=== PATIENT | female | born 1965 | race Caucasian/White ===

== ENCOUNTER → 2017-06-07 | Day surgery (SDC) | payer OTHER ==
--- NOTE | 2017-06-07 16:12 | MM ---
EXAMINATION TYPE: MG discontinued stereo core LT DATE OF EXAM: 06/07/2017 COMPARISON: Outside exams 05/09/2017 and 04/26/2016 CLINICAL HISTORY: 51-year-old female abnormal mammogram. Patient with family history of BRCA1 mutatio n. Scheduled for testing on July 09. TECHNIQUE and FINDINGS: The patient's imaging is reviewed. The initial screening exam from 04/29/2017 indicated an asymmetry in the anterior aspect medially. The diagnostic mammogram images from 05/09/2017 are reviewed and show n o clear persisting abnormality here. A central asymmetry was questioned at that time but only compare d back to the 2015 exam whereas the initial screening was compared to older priors. No discrete targe t is seen for core needle biopsy at this time. Six-month follow-up diagnostic left breast mammogram is recommended. Findings were discussed with the patient after consulting with Dr. Isaias Islas. IMPRESSION: 1. BI-RADS 3 - probably benign 2. Canceled stereotactic core needle biopsy left breast as no discrete target for biopsy is seen at t his time. RECOMMENDATION: 1. Six-month follow-up diagnostic left breast mammogram. 2. Patient should continue as planned with BRCA1 gene mutation testing for herself given her positive family history. 3. Patient should continue monthly self breast exam. 4. This should not preclude additional follow-up of suspicious palpable abnormalities.
== END ==
LOC: RADMAMWWP 07:24
PROVIDERS: ATTEND Surgery
DX: R92.8 Other abnormal and inconclusive findings on diagnostic imaging of breast (principal); Z53.8 Procedure and treatment not carried out for other reasons; Z80.3 Family history of malignant neoplasm of breast

== ENCOUNTER → 2017-12-12 | Outpatient (CLI) | payer OTHER ==
--- NOTE | 2017-12-13 08:28 | MM ---
Reason for exam: clinical finding. Last mammogram was performed 7 months ago. History: Family history of breast cancer in mother at age 34, breast cancer in aunt at age 40, and breast cancer in 2 cousins at age 30. MG discontinued stereo core LT of the left breast, June 07, 2017. Benign excisional biopsy of the left breast, 1997. Physical Findings: Nurse did not find any significant physical abnormalities on exam. MG 3D Diag Mammo W/Cad KEVIN Bilateral CC and MLO view(s) were taken. Prior study comparison: April 29, 2017, mammogram. April 26, 2016, mammogram. There are scattered fibroglandular densities. Stable asymmetric densities on the left breast. Nurse reports that patient did undergo BRCA gene mutation testing and was negative. No significant new findings when compared with previous films. These results were verbally communicated with the patient and result sheet given to the patient on 12/12/17. ASSESSMENT: Negative, BI-RAD 1 RECOMMENDATION: Routine screening mammogram of both breasts in 1 year.
== END | disposition home or self-care (01) ==
LOC: RADMAMWWP 08:58
PROVIDERS: ATTEND Family Medicine
DX: R92.8 Other abnormal and inconclusive findings on diagnostic imaging of breast (principal)
CPT/HCPCS: 77066; G0279

== ENCOUNTER → 2018-12-30 | Outpatient (CLI) | payer OTHER ==
--- NOTE | 2018-12-31 11:02 | MM ---
Reason for exam: screening (asymptomatic). Last mammogram was performed 1 year and 1 month ago. History: Family history of breast cancer in mother at age 34, breast cancer in aunt at age 40, and breast cancer in 2 cousins at age 30. MG discontinued stereo core LT of the left breast, June 07, 2017. Benign excisional biopsy of the left breast, 1997. Physical Findings: A clinical breast exam by your physician is recommended on an annual basis and results should be correlated with mammographic findings. MG Screening Mammo w CAD Bilateral CC and MLO view(s) were taken. Prior study comparison: December 12, 2017, bilateral MG 3d diag mammo w/cad KEVIN. April 29, 2017, mammogram. There are scattered fibroglandular densities. There is no discrete abnormality. No significant changes when compared with prior studies. ASSESSMENT: Negative, BI-RAD 1 RECOMMENDATION: Routine screening mammogram of both breasts in 1 year.
== END | disposition home or self-care (01) ==
LOC: RADMAMWWP 07:19
PROVIDERS: ATTEND Family Medicine
DX: Z12.31 Encounter for screening mammogram for malignant neoplasm of breast (principal)
CPT/HCPCS: 77067

== ENCOUNTER → 2020-01-19 | Outpatient (CLI) | payer BC, OTHER ==
--- NOTE | 2020-01-20 08:24 | MM ---
Reason for exam: screening (asymptomatic). Last mammogram was performed 1 year and 1 month ago. History: Family history of breast cancer in mother at age 34, breast cancer in aunt at age 40, and breast cancer in 2 cousins at age 30. MG discontinued stereo core LT of the left breast, June 07, 2017. Benign excisional biopsy of the left breast, 1997. Took hormonal contraceptives for 3 months. Physical Findings: A clinical breast exam by your physician is recommended on an annual basis and results should be correlated with mammographic findings. MG 3D Screening Mammo W/Cad Bilateral CC and MLO view(s) were taken. Prior study comparison: December 30, 2018, bilateral MG screening mammo w CAD. December 12, 2017, bilateral MG 3d diag mammo w/cad KEVIN. There are scattered fibroglandular densities. There is no discrete abnormality. No significant changes when compared with prior studies. ASSESSMENT: Negative, BI-RAD 1 RECOMMENDATION: Routine screening mammogram of both breasts in 1 year.
== END | disposition home or self-care (01) ==
LOC: RADMAMWWP 08:01
PROVIDERS: ATTEND Family Medicine
DX: Z12.31 Encounter for screening mammogram for malignant neoplasm of breast (principal)
CPT/HCPCS: 77063; 77067

== ENCOUNTER → 2021-03-08 | Outpatient (CLI) | payer BC, OTHER ==
--- NOTE | 2021-03-09 11:21 | MM ---
Reason for exam: screening (asymptomatic). Last mammogram was performed 1 year and 2 months ago. History: Family history of breast cancer in mother at age 34, breast cancer in aunt at age 40, and breast cancer in 2 cousins at age 30. MG discontinued stereo core LT of the left breast, June 07, 2017. Benign excisional biopsy of the left breast, 1997. Took hormonal contraceptives for 3 months. Physical Findings: A clinical breast exam by your physician is recommended on an annual basis and results should be correlated with mammographic findings. MG 3D Screening Mammo W/Cad Bilateral CC and MLO view(s) were taken. Prior study comparison: January 19, 2020, bilateral MG 3d screening mammo w/cad. December 30, 2018, bilateral MG screening mammo w CAD. There are scattered fibroglandular densities. There are benign appearing round calcifications bilaterally. There is chronic nodularity in the left breast. There is no discrete abnormality. ASSESSMENT: Benign, BI-RAD 2 RECOMMENDATION: Routine screening mammogram of both breasts in 1 year.
== END | disposition home or self-care (01) ==
LOC: RADMAMWWP 11:22
PROVIDERS: ATTEND Family Medicine
DX: Z12.31 Encounter for screening mammogram for malignant neoplasm of breast (principal); Z80.3 Family history of malignant neoplasm of breast
CPT/HCPCS: 77063; 77067

== ENCOUNTER → 2022-01-17 | Outpatient (CLI) | payer BC, OTHER ==
--- NOTE | 2022-01-17 14:14 | US ---
EXAMINATION TYPE: US venous doppler duplex LE LT DATE OF EXAM: 01/17/2022 12:38 PM COMPARISON: NONE CLINICAL HISTORY: I82.403 ACUTE EMBOLISM AND THOMBOS UNSP DEEP VEINS. pain in left calf ongoing since last summer, no h/o dvt, recent DVT SIDE PERFORMED: Left TECHNIQUE: The lower extremity deep venous system is examined utilizing real time linear array sonog hany with graded compression, doppler sonography and color-flow sonography. VESSELS IMAGED: Common Femoral Vein Deep Femoral Vein Greater Saphenous Vein * Femoral Vein Popliteal Vein Small Saphenous Vein * Proximal Calf Veins (* superficial vessels) Left Leg: Negative for DVT hypoechoic areas noted within calf muscle at site of patients pain that could be related to muscle strain or tear. MRI could benefit patient. She recalls an injury related to physical therapy last summer and pain has persisted on left calf. attempted to call office at 12:40 and they are closed IMPRESSION: 1. Left lower extremity ultrasound negative for deep venous thrombosis. 2. Hypoechoic collection within the popliteal space. Correlate for seroma. Popliteal cyst is consider ed less likely. MRI could further evaluate this finding.
== END | disposition home or self-care (01) ==
LOC: RADUSWWP 12:05
PROVIDERS: ATTEND Family Medicine
DX: I82.403 Acute embolism and thrombosis of unspecified deep veins of lower extremity, bilateral (principal)

== ENCOUNTER → 2022-03-22 | Outpatient (CLI) | payer BC, OTHER ==
[2022-03-22 14:30] LABS: Basophils # (A) 0.06 X 10*3/uL (0.00-0.10); Basophils % (A) 0.7 %; Eosinophils # (A) 0.13 X 10*3/uL (0.04-0.35); Eosinophils % (A) 1.5 %; HCT 50.2 % (37.2-46.3); HGB 16.2 g/dL (12.0-15.0); Immature Grans, Automated 0.5 %; Lymphocytes # (A) 2.96 X 10*3/uL (0.90-5.00); Lymphocytes % (A) 34.7 %; MCH 27.9 pg (27.0-32.0); MCHC 32.3 g/dL (32.0-37.0); MCV 86.4 fL (80.0-97.0); Mean Platelet Volume 9.6 fL (9.5-12.2); Monocytes # (A) 0.47 X 10*3/uL (0.20-1.00); Monocytes % (A) 5.5 %; NRBC Per 100 WBC 0 /100 WBCS (0.0-0.0); Neutrophils # (A) 4.86 X 10*3/uL (1.80-7.70); Neutrophils % (A) 57.1 %; Platelet Count 332 X 10*3/uL (140-440); RBC 5.81 X 10*6/uL (4.10-5.20); RDW 13.2 % (11.5-14.5); WBC 8.52 X 10*3/uL (4.50-10.00)
[2022-03-22 15:17] LABS: Anion Gap 11.3 mmol/L (10.00-18.00); Carbon Dioxide 26.7 mmol/L (20.0-27.5); Potassium 5.5 mmol/L (3.5-5.5)
== END | disposition home or self-care (01) ==
LOC: LABPAT 09:33
PROVIDERS: ATTEND Orthopaedic Surgery
DX: Z01.818 Encounter for other preprocedural examination (principal); M23.91 Unspecified internal derangement of right knee; R94.31 Abnormal electrocardiogram [ECG] [EKG]
CPT/HCPCS: 36415; 80051; 85025; 93005

== ENCOUNTER → 2022-03-28 | Outpatient (CLI) | payer BC, OTHER ==
--- NOTE | 2022-03-29 02:20 | MR ---
EXAMINATION TYPE: MR knee LT wo con DATE OF EXAM: 03/28/2022 COMPARISON: None HISTORY: Left inner knee pain, locking, and swelling since May 2021. Multiplanar multiecho imaging of the left knee without contrast. There is moderate size knee joint effusion. There is 4.5 x 1.5 cm popliteal cyst. Patella is intact. Distal femur and proximal tibia. Tach. There is minor spurring of the femoral and tibial condyles. Th e collateral ligaments appear fairly normal. There is a large horizontal tear through the posterior horn of the medial meniscus extending to the i nferior surface. The lateral meniscus appears intact. IMPRESSION: Moderate knee joint effusion with popliteal cyst. Moderate sized horizontal tear of the posterior horn of the medial meniscus. No evidence of any signi ficant ligamentous tear.
== END | disposition home or self-care (01) ==
LOC: RADMRIMAIN 19:01
PROVIDERS: ATTEND Orthopaedic Surgery
DX: M25.462 Effusion, left knee (principal); M71.22 Synovial cyst of popliteal space [Baker], left knee; M23.322 Other meniscus derangements, posterior horn of medial meniscus, left knee

== ENCOUNTER → 2022-04-03 | Outpatient (CLI) | payer BC, OTHER ==
--- NOTE | 2022-04-05 08:56 | MM ---
Reason for exam: screening (asymptomatic). Last mammogram was performed 1 year and 1 month ago. History: Patient is postmenopausal. Family history of breast cancer in mother at age 34, breast cancer in maternal aunt at age 40, and breast cancer in 2 cousins at age 30. MG discontinued stereo core LT of the left breast, June 07, 2017. Benign excisional biopsy of the left breast, 1997. Took hormonal contraceptives for 3 months. Physical Findings: A clinical breast exam by your physician is recommended on an annual basis and results should be correlated with mammographic findings. MG 3D Screening Mammo W/Cad Bilateral CC and MLO view(s) were taken. Prior study comparison: March 08, 2021, bilateral MG 3d screening mammo w/cad. January 19, 2020, bilateral MG 3d screening mammo w/cad. There are scattered fibroglandular densities. Benign appearing bilateral calcifications. No significant changes when compared with prior studies. ASSESSMENT: Benign, BI-RAD 2 RECOMMENDATION: Routine screening mammogram of both breasts in 1 year.
== END | disposition home or self-care (01) ==
LOC: RADMAMWWP 09:13
PROVIDERS: ATTEND Family Medicine
DX: Z12.31 Encounter for screening mammogram for malignant neoplasm of breast (principal); Z78.0 Asymptomatic menopausal state; Z80.3 Family history of malignant neoplasm of breast
CPT/HCPCS: 77063; 77067

== ENCOUNTER 2022-04-05 09:54 | Day surgery (SDC) | payer BC, OTHER ==
[2022-04-04 12:26] VITALS: BMI 49.8
--- NOTE | 2022-04-04 18:04 | HP ---
HISTORY AND PHYSICAL DATE OF SURGERY: 04/05/2022 Arianna Mcclelland is a 56-year-old patient seen with progressive right knee pain. We discussed options for treatment. She elected to proceed with right knee arthroscopy. Consent was obtained. PAST MEDICAL HISTORY: Pdb-fzwsvhf-kezwtrhmj diabetes, hyperlipidemia, gastroesophageal reflux disease. PAST SURGICAL HISTORY: Hysterectomy, section, knee arthroscopy, breast biopsy. DAILY MEDICATIONS: Atorvastatin, metformin, omeprazole, Singulair, Motrin. ALLERGIES: NONE. SOCIAL HISTORY: She smokes cigarettes. PHYSICAL EVALUATION OF THE RIGHT KNEE: Her range of motion is negative 3 to 120. Mild effusion. Tenderness, medial joint line. Positive medial Lyn's. Ligaments stable. Hip rotation without pain. Distal neurovascular exam intact. Radiographs of the right knee revealed mild osteoarthritis. MRI of the right knee revealed a complex medial meniscal tear and an intra-articular effusion. IMPRESSION: 1. Internal derangement of right knee with medial meniscal tear. 2. Hypertension. 3. Hyperlipidemia. 4. Jbf-mcqhsaj-plykgxqoy diabetes. PLAN: Right knee arthroscopy with partial medial meniscectomy and debridement. MMODL / IJN: [id number] /
[~2022-04-05 09:54] MED LIST: DEXAMETHASONE SOD PHOSPHATE 4 MG/ML 1 ML VIAL IV ONE; LACTATED RINGERS 1,000 ML IV SCH; ONDANSETRON 4 MG/2 ML VIAL IVP ONE
[2022-04-05 11:02] VITALS: TEMP 97.9
[2022-04-05] MEDS ORDERED: LIDOCAINE 1% (10MG/ML) FOR IV START INTRADERMA ONE (11:15)
[2022-04-05 11:30] LABS: Glucose,Whole Blood 124 mg/dL (75-99)
[2022-04-05] MEDS ORDERED: BUPIVACAINE (PF) 0.25% 30 ML VIAL SQ ONE ×2 (12:03→12:53)
[2022-04-05] MEDS ORDERED: fentaNYL (PF) 50 MCG/ML 2 ML AMP ONE (12:21)
[2022-04-05] MEDS ORDERED: LIDOCAINE 2% INJ 20 MG/ML (2 ML VIAL) ONE (12:21)
[2022-04-05] MEDS ORDERED: MIDAZOLAM 2 MG/2 ML VIAL ONE (12:21)
[2022-04-05] MEDS ORDERED: PROPOFOL 10 MG/ML 20 ML VIAL IV ONE (12:21)
--- NOTE | 2022-04-05 13:06 | P.OP ---
Date of Procedure: 04/05/22 Preoperative Diagnosis: Internal derangement right knee Postoperative Diagnosis: 1. Tear medial and lateral meniscus right knee 2. Grade 4 chondromalacia medial femoral condyle right knee 3. Grade 3 chondromalacia patella right knee 4. Reactive synovitis medial, lateral and suprapatellar compartments right knee Procedure(s) Performed: 1. Arthroscopic partial medial and lateral meniscectomy right knee 2. Arthroscopic microfracture medial femoral condyle right knee 3. Arthroscopic partial synovectomy medial, lateral and suprapatellar compartments right knee 4. Arthroscopic chondroplasty patella right knee Anesthesia: ISAUROA, local Surgeon: Aguila Campbell Estimated Blood Loss (ml): 8 Pathology: none sent Condition: stable Disposition: PACU Indications for Procedure: 56-year-old patient seen with progressive right knee pain. After treatment options were discussed, she elected to proceed with arthroscopy. Operative Findings: See description of procedure Description of Procedure: Patient was taken to the operative suite. Patient underwent a general anesthetic by the department of anesthesia. Patient was given preoperative antibiotics. The right lower extremity was placed in a well-padded arthroscopic leg tolliver. The right leg was prepped and draped in the normal sterile orthopedic fashion. A lateral parapatellar and suprapatellar incision was made. Trochars were inserted. Arthroscopy was initiated. Suprapatellar pouch revealed diffuse thick reactive synovitis. The patellofemoral joint appeared to articulate congruently. There was grade 3 chondromalacia patella with diffuse osteochondral flap tears present. The scope was guided into the medial gutter. Loose bodies or plica were identified. The scope was then guided into the medial compartment. A medial parapatellar incision was made. Trocar inserted followed by probe. There was a root type tear involving the posterior horn medial meniscus with instability. There was an area of grade 3/4 chondromalacia weightbearing surface medial femoral condyle. There was thick reactive synovitis anteriorly. I performed a partial medial meniscectomy getting down to stable meniscal tissue. I performed a chondroplasty of the medial femoral condyle. I performed a partial synovectomy decompressing the reactive synovitis anteriorly. I did note an area of exposed bone weightbearing surface medial femoral condyle measuring approximately 17 mm in diameter. I introduced a microfracture awl and I performed a microfracture of the medial femoral condyle penetrating the bone with resultant bleeding at the microfracture site. The res idual osteochondral surface was stable. The residual meniscus was stable. There was good decompression of synovitis. Scope and probe were then guided into the intercondylar notch. Cruciates were identified, probed and found to be stable. The scope and probe were then guided into lateral compartment. There was a radial tear involving the mid body of the lateral meniscus. There was thick reactive synovitis anteriorly. There were grade 1 chondromalacia changes of the tibial plateau. I performed a partial lateral meniscectomy getting down to stable meniscal tissue. I performed a partial synovectomy decompressing the reactive synovitis. The residual meniscus was stable. There was good decompression of the synovitis. The scope was in guided back into the suprapatellar compartment. I introduced a motorized shaver into the suprapatellar compartment. I debrided some piecemeal fragments of meniscus that I encountered. I performed a chondroplasty of the patella getting down to sta ble osteochondral tissue. I performed a partial synovectomy decompressing the thick reactive synovitis. The shaver was now removed. The residual osteochondral surface was stable. There was good decompression of synovitis. I now took one more look around the entire knee, no residual debris. Instruments were now removed from the joint. The joint was infiltrated with .25% Marcaine. Steri-Strips were applied to the portal sites. Sterile dressings were applied. The patient was placed into a CARLA hose. No tourniquet was utilized. The patient was awakened, transferred to a bed and taken to recovery stable satisfactory condition.
[2022-04-05] MEDS: HYDROmorphone 0.5 MG/0.5 ML SYRINGE IVP PRN ×3 (13:09→13:28)
[2022-04-05] MEDS ORDERED: KETOROLAC 15 MG/ML 1 ML VIAL IVP ONE (13:10)
[2022-04-05] MEDS ORDERED: LACTATED RINGERS 1,000 ML IV ONE (13:48)
[2022-04-05] MEDS ORDERED: HYDROcodone/APAP 5-325MG 1 EACH TAB PO ONE (13:54)
[2022-04-05] MEDS ORDERED: HYDROcodone/APAP 5-325MG 1 EACH TAB ONE (13:56)
[2022-04-05] MEDS ORDERED: ONDANSETRON ODT 4 MG TAB PO ONE (14:20)
[2022-04-05 14:37] VITALS: BP 162/77; PULSE 67; RESP 20
== END 2022-04-05 14:53 | disposition home or self-care (01) ==
LOC: OR 09:54
PROVIDERS: ATTEND Orthopaedic Surgery
DX: S83.281A Other tear of lateral meniscus, current injury, right knee, initial encounter (principal); M22.41 Chondromalacia patellae, right knee; M65.9 Synovitis and tenosynovitis, unspecified; E11.9 Type 2 diabetes mellitus without complications; E78.5 Hyperlipidemia, unspecified; F17.210 Nicotine dependence, cigarettes, uncomplicated; I10 Essential (primary) hypertension; K21.9 Gastro-esophageal reflux disease without esophagitis; Z79.84 Long term (current) use of oral hypoglycemic drugs; J45.909 Unspecified asthma, uncomplicated; F41.9 Anxiety disorder, unspecified; F32.A Depression, unspecified; Z88.8 Allergy status to other drugs, medicaments and biological substances; Z79.899 Other long term (current) drug therapy
CPT/HCPCS: 29879; 29880; J2250; J0690; J2405; J3010; J1885; J2704; J1170; J2001

== ENCOUNTER 2022-05-24 12:26 | Day surgery (SDC) | payer BC, OTHER ==
--- NOTE | 2022-05-23 17:43 | HP ---
HISTORY AND PHYSICAL REASON FOR ADMISSION: Surgery scheduled for 05/24/2022 HISTORY OF PRESENT ILLNESS: Arianna Mcclelland is a 56-year-old patient seen with progressive left knee pain. We discussed options for treatment. She elected to proceed with left knee arthroscopy. Consent obtained. PAST MEDICAL HISTORY: Hypertension, hyperlipidemia, gyn-aueganp-pfjpamula diabetes. PAST SURGICAL HISTORY: section, hysterectomy, knee arthroscopy, breast biopsy. DAILY MEDICATIONS: Atorvastatin, metformin, omeprazole, Valsartan, vitamins. ALLERGIES: None. SOCIAL HISTORY: She smokes cigarettes. PHYSICAL EVALUATION OF THE LEFT KNEE: Range of motion 0-125. Mild effusion. Tenderness medial joint line. Positive medial Lyn's. Ligaments stable. Hip rotation without pain. Distal neurovascular exam intact left knee. RADIOGRAPHS: Left knee radiographs reveal some osteoarthritic changes. Left knee MRI revealed medial meniscal tear. IMPRESSION: 1. Internal derangement of left knee with medial meniscal tear. 2. Hypertension. 3. Hyperlipidemia. 4. Ipe-rfvhsvj-xukkullzn diabetes. PLAN: Left knee arthroscopy with partial medial meniscectomy and debridement. Surgery scheduled 05/24/2022. MMODL / IJN: [id number] /
[~2022-05-24 12:26] MED LIST changes: +HYDROmorphone 0.5 MG/0.5 ML SYRINGE IVP PRN; +LIDOCAINE 1% (10MG/ML) FOR IV START INTRADERMA PRN; +MIDAZOLAM 2 MG/2 ML VIAL IV PRN
[2022-05-24 13:04] LABS: Glucose,Whole Blood 135 mg/dL (70-110)
[2022-05-24] MEDS ORDERED: MIDAZOLAM 2 MG/2 ML VIAL IVP ONE (13:16)
[2022-05-24] MEDS ORDERED: SUCCINYLCHOLINE CHLORIDE 100 MG/5 ML SYR IV ONE (13:56)
[2022-05-24] MEDS ORDERED: MIDAZOLAM 2 MG/2 ML VIAL ONE (13:56)
[2022-05-24] MEDS ORDERED: PROPOFOL 10 MG/ML 20 ML VIAL IV ONE (13:56)
[2022-05-24] MEDS ORDERED: fentaNYL (PF) 50 MCG/ML 2 ML AMP ONE (13:56)
[2022-05-24] MEDS ORDERED: BUPIVACAINE (PF) 0.25% 30 ML VIAL SQ ONE ×2 (14:06→14:29)
--- NOTE | 2022-05-24 14:48 | P.OP ---
Date of Procedure: 05/24/22 Preoperative Diagnosis: Internal derangement left knee Postoperative Diagnosis: 1. Tear medial and lateral meniscus left knee 2. Reactive synovitis medial, lateral and suprapatellar compartments left knee 3. Grade 2 chondromalacia patella left knee Procedure(s) Performed: 1. Arthroscopic partial medial and lateral meniscectomy left knee 2. Arthroscopic partial synovectomy medial, lateral and super patellar compartments left knee 3. Arthroscopic chondroplasty patella left knee Anesthesia: ISAUROA, local Surgeon: Aguila Campbell Estimated Blood Loss (ml): 8 Pathology: none sent Condition: stable Disposition: PACU Indications for Procedure: 56-year-old patient seen with progressive left knee pain. After treatment options were discussed with her, she elected to proceed with arthroscopy. Operative Findings: See description of procedure Description of Procedure: Patient was taken to the operative suite. Patient underwent a general anesthetic by the department of anesthesia. Patient was given preoperative anti biotics. The left lower extremity was placed in a well-padded arthroscopic leg tolliver. The left leg was prepped and draped in the normal sterile orthopedic fashion. A lateral parapatellar and suprapatellar incision was made. Trochars were inserted. Arthroscopy was initiated. Suprapatellar pouch revealed diffuse thick reactive synovitis. The patellofemoral joint appeared to articulate congruently. There was grade 2 chondromalacia patella with some diffuse osteochondral flap tears present. The scope was guided into the medial gutter. No loose bodies or plica were identified. The scope was then guided into the medial compartment. A medial parapatellar incision was made. Trocar inserted followed by probe. There was a complex tear involving the posterior horn medial meniscus. There were grade 1/2 chondromalacia changes of the medial tibial plateau. There was some thick reactive synovitis anteriorly. I performed a partial medial meniscectomy getting down to stable meniscal tissue. I performed a partial synovectomy decompressing the reactive synovitis. The residual meniscus was stable. There was good decompression of the synovitis. Scope and probe were then guided into the intercondylar notch. Cruciates were identified, probed and found to be stable. The scope and probe were then guided into lateral compartment. There was a radial tear involving the midbody lateral meniscus. There was some thick reactive synovitis anteriorly. There were grade 1 chondromalacia changes of the lateral tibial plateau. I performed a partial lateral meniscectomy getting down to stable meniscal tissue. I performed a partial synovectomy decompressing the reactive synovitis. The residual meniscus was stable. There was good decompression of the synovitis. Thee scope was in guided back into the suprapatellar compartment. I introduced the motorized shaver into the suprapatellar compartment. I debrided some piecemeal fragments of meniscus I encountered. I performed a chondroplasty of the patella getting down to stable osteochondral tissue. I performed a partial synovectomy. The shaver was now removed. There was good decompression of synovitis. The residual osteochondral surface about the patella was stable. I now took one more look on the entire knee, no residual debris. Instruments were now removed from the joint. The joint was infiltrated with .25% Marcaine. Steri-Strips were applied to the portal sites. Sterile dressings were applied. The patient was placed into a CARLA hose. No tourniquet was utilized. The patient was awakened, transferred to a bed and taken to recovery stable satisfactory condition.
[2022-05-24 14:50] VITALS: TEMP 97.2
[2022-05-24] MEDS: fentaNYL (PF) 50 MCG/ML 2 ML AMP IVP ONE ×2 (14:53→14:58)
[2022-05-24] MEDS ORDERED: LACTATED RINGERS 1,000 ML IV ONE ×2 (14:55)
[2022-05-24] MEDS ORDERED: HYDROcodone/APAP 5-325MG 1 EACH TAB PO ONE (15:20)
[2022-05-24] MEDS ORDERED: HYDROcodone/APAP 5-325MG 1 EACH TAB ONE (15:26)
[2022-05-24 15:39] VITALS: RESP 20
[2022-05-24 16:03] VITALS: BP 144/70; PULSE 69
== END 2022-05-24 16:04 | disposition home or self-care (01) ==
LOC: OR 12:26
PROVIDERS: ATTEND Orthopaedic Surgery
DX: M23.222 Derangement of posterior horn of medial meniscus due to old tear or injury, left knee (principal); M23.201 Derangement of unspecified lateral meniscus due to old tear or injury, left knee; M65.9 Synovitis and tenosynovitis, unspecified; M22.42 Chondromalacia patellae, left knee; M17.12 Unilateral primary osteoarthritis, left knee; I10 Essential (primary) hypertension; E11.69 Type 2 diabetes mellitus with other specified complication; E78.5 Hyperlipidemia, unspecified; Z79.84 Long term (current) use of oral hypoglycemic drugs; Z79.899 Other long term (current) drug therapy; F17.210 Nicotine dependence, cigarettes, uncomplicated; J45.909 Unspecified asthma, uncomplicated; K21.9 Gastro-esophageal reflux disease without esophagitis; Z88.5 Allergy status to narcotic agent; Z88.8 Allergy status to other drugs, medicaments and biological substances; Z88.6 Allergy status to analgesic agent; Z79.1 Long term (current) use of non-steroidal anti-inflammatories (NSAID); Z83.3 Family history of diabetes mellitus; Z82.49 Family history of ischemic heart disease and other diseases of the circulatory system; Z80.9 Family history of malignant neoplasm, unspecified; Z82.61 Family history of arthritis
CPT/HCPCS: 29880; 29876; J2250; J1100; J0690; J2405; J3010; J0330; J2704

== ENCOUNTER → 2023-04-09 | Outpatient (CLI) | payer BC, OTHER ==
--- NOTE | 2023-04-10 08:24 | MM ---
Reason for Exam: Screening (asymptomatic). Last screening mammogram was performed 12 month(s) ago. Patient History: Menarche at age 13. First Full-Term at age 17. Hysterectomy at age 47. Postmenopausal. Hormonal Contraceptives for 3 months. 1997, Benign Excisional Biopsy on the left side. 06/07/2017, MG discontinued stereo core LT on the left side. Maternal cousin had breast cancer, age 30. Maternal cousin had breast cancer, age 30. Maternal aunt had breast cancer, age 40. Mother had breast cancer, age 34. Risk Values: Rochelle 5 year model risk: 2.7%. NCI Lifetime model risk: 16.8%. Prior Study Comparison: 01/19/2020 Bilateral Screening Mammogram, [facility]. 03/08/2021 Bilateral Screening Mammogram, [facility]. 04/03/2022 Bilateral Screening Mammogram, [facility]. Tissue Density: There are scattered fibroglandular densities. Findings: Analyzed By CAD. There is no suspicious group of microcalcifications or new suspicious mass in either breast. Benign calcifications within both breasts. Chronic nodularity within the left breast. Similar post excisional biopsy changes in the left breast. Overall Assessment: Benign, BI-RAD 2 Management: Screening Mammogram of both breasts in 1 year. A clinical breast exam by your physician is recommended on an annual basis and results should be correlated with mammographic findings. Electronically signed and approved by: Agustín Mcginnis D.O.
== END | disposition home or self-care (01) ==
LOC: RADMAMWWP 07:08
PROVIDERS: ATTEND Family Medicine
DX: Z12.31 Encounter for screening mammogram for malignant neoplasm of breast (principal); Z78.0 Asymptomatic menopausal state; Z80.3 Family history of malignant neoplasm of breast
CPT/HCPCS: 77063; 77067

== ENCOUNTER → 2024-02-27 | Outpatient (CLI) | payer BC, OTHER ==
--- NOTE | 2024-02-27 15:21 | CT ---
EXAMINATION TYPE: CT abdomen pelvis wo con DATE OF EXAM: 02/27/2024 COMPARISON: None HISTORY: left umbilical pain CT DLP: 1128 mGycm Automated exposure control for dose reduction was used. TECHNIQUE: Helical acquisition of images was performed from the lung bases through the pelvis. FINDINGS: The lungs are clear. Gallbladder is normal and there is no gallstone, wall thickening, pericholecystic fluid or distention . There is no biliary ductal dilatation. There is no organomegaly of the liver, pancreas, spleen or adrenal glands. There are no renal calcifications or hydronephrosis. The caliber of the abdominal aorta is normal and there is no retroperitoneal adenopathy or hemorrhage . The bowel loops are normal in caliber is no evidence of obstruction. No inflammatory changes are iden tified in the mesentery and there is no free intraperitoneal air or fluid. The appendix is visualized and is normal. There is no pelvic mass, free fluid, abscess or adenopathy. The osseous structures and soft tissues are unremarkable. IMPRESSION: No significant abnormality seen.
== END | disposition home or self-care (01) ==
LOC: RADCTMAIN 12:07
PROVIDERS: ATTEND Family Medicine
DX: R10.32 Left lower quadrant pain (principal); R10.33 Periumbilical pain
CPT/HCPCS: 74176

== ENCOUNTER → 2024-06-12 | Outpatient (CLI) | payer BC, OTHER ==
--- NOTE | 2024-06-14 12:28 | MM ---
Reason for Exam: Screening (asymptomatic). Last mammogram was performed 1 year(s) and 2 month(s) ago. Patient History: Menarche at age 13. First Full-Term at age 17. Hysterectomy at age 47. Postmenopausal. Hormonal Contraceptives for 3 months. 1997, Benign Excisional Biopsy on the left side. 06/07/2017, MG discontinued stereo core LT on the left side. Maternal cousin had breast cancer, age 30. Maternal cousin had breast cancer, age 30. Maternal aunt had breast cancer, age 40. Mother had breast cancer, age 34. Risk Values: Rochelle 5 year model risk: 2.8%. NCI Lifetime model risk: 16.5%. Prior Study Comparison: 12/12/2017 Bilateral Diagnostic Mammogram, [facility]. 12/30/2018 Bilateral Screening Mammogram, [facility]. 01/19/2020 Bilateral Screening Mammogram, [facility]. 03/08/2021 Bilateral Screening Mammogram, [facility]. 04/03/2022 Bilateral Screening Mammogram, [facility]. 04/09/2023 Bilateral MG 3D screening mammo w/cad, [facility]. Tissue Density: There are scattered areas of fibroglandular density. Findings: Analyzed By CAD. The pattern is symmetrical. No significant interval change. Some distortion is within the mid left breast appears stable. No suspicious groups of microcalcifications, spiculated or lobular masses, architectural distortion or other secondary signs of malignancy are mammographically apparent. Overall Assessment: Benign, BI-RAD 2 Management: Screening Mammogram of both breasts in 1 year. A negative mammogram report should not preclude additional follow up of suspicious palpable abnormalities. Patient should continue monthly self breast exam. A clinical breast exam by your physician is recommended on an annual basis and results should be correlated with mammographic findings. Note on Rochelle scores and lifetime risk: 1. A Rochelle score greater than 3% is considered moderate risk. If this is the case, consider specialist referral to assess eligibility for a risk reducing agent. 2. If overall lifetime risk for the development of breast cancer is 20% or higher, the patient may qualify for future screening with alternating mammogram and breast MRI. Electronically signed and approved by: Jamil Valdez D.O. Radiologis
== END | disposition home or self-care (01) ==
LOC: RADMAMWWP 06:57
PROVIDERS: ATTEND Family Medicine
DX: Z12.31 Encounter for screening mammogram for malignant neoplasm of breast (principal); R92.323 Mammographic fibroglandular density, bilateral breasts; Z80.3 Family history of malignant neoplasm of breast; Z78.0 Asymptomatic menopausal state
CPT/HCPCS: 77063; 77067

== ENCOUNTER → 2025-05-31 | Outpatient (CLI) | payer BC, OTHER ==
[2025-05-31 15:20] LABS: Anion Gap 11.30 mmol/L (4.00-12.00); BUN/Creat Ratio 18.71 Ratio (12.00-20.00); Blood Urea Nitrogen 13.1 mg/dL (9.0-27.0); Calcium 9.9 mg/dL (8.7-10.3); Carbon Dioxide 23.7 mmol/L (21.6-31.8); Chloride 104 mmol/L (96-109); Glucose 100 mg/dL (70-110); Potassium 4.2 mmol/L (3.5-5.5); Sodium 139 mmol/L (135-145)
[2025-05-31 16:00] LABS: Basophils # (A) 0.06 X 10*3/uL (0.00-0.10); Basophils % (A) 0.8 %; Eosinophils # (A) 0.22 X 10*3/uL (0.04-0.35); Eosinophils % (A) 2.9 %; HCT 47.0 % (37.2-46.3); HGB 15.6 g/dL (12.0-15.0); Immature Grans, Automated 0.30 %; Lymphocytes # (A) 3.11 X 10*3/uL (0.90-5.00); Lymphocytes % (A) 41.7 %; MCH 28.1 pg (27.0-32.0); MCHC 33.2 g/dL (32.0-37.0); MCV 84.5 FL (80.0-97.0); Monocytes # (A) 0.59 X 10*3/uL (0.20-1.00); Monocytes % (A) 7.9 %; NRBC Per 100 WBC 0 X 10*3/uL (0.00-0.01); Neutrophils # (A) 3.46 X 10*3/uL (1.80-7.70); Neutrophils % (A) 46.4 %; Platelet Count 318 X 10*3/uL (140-440); RBC 5.56 X 10*6/uL (4.10-5.20); RDW 12.7 % (11.5-14.5); WBC 7.46 X 10*3/uL (4.50-10.00)
== END | disposition home or self-care (01) ==
LOC: LABPAT 12:11
PROVIDERS: ATTEND Orthopaedic Surgery
DX: Z01.818 Encounter for other preprocedural examination (principal); G56.02 Carpal tunnel syndrome, left upper limb
CPT/HCPCS: 80048; 85025; 93005

== ENCOUNTER 2025-06-15 07:53 | Day surgery (SDC) | payer BC, OTHER ==
--- NOTE | 2025-06-14 08:09 | P.HPOR ---
History of Present Illness H&P Date: 06/14/25 Chief Complaint: Left hand pain and numbness The patient is a 59-year-old female who presents with left hand pain and numbness has progressed over the past year. She has tried bracing along with medications without much relief. She notes pain with gripping and grasping and at night. Review of Systems Per HPI Past Medical History Past Medical History: Asthma, COPD, Diabetes Mellitus, GERD/Reflux, Hypert ension, Osteoarthritis (OA) Additional Past Medical History / Comment(s): Type 2. arthritis all over per pt. History of Any Multi-Drug Resistant Organisms: None Reported Past Surgical History: Section, Hysterectomy Additional Past Surgical History / Comment(s): right hand - osteo, left breast - needle biopsy with complications removal of " tissue" afterward. blood clot in breast? , naomie knee arthroscopic meniscus repair,. laser surgery rt eye 05/14/22 to open eye so she doesnt get glaucoma?( Dr Napier). cyst removal side of nose. Past Anesthesia/Blood Transfusion Reactions: No Reported Reaction Smoking Status: Current every day smoker - Past Family History Mother Family Medical History: Cancer, Diabetes Mellitus, Osteoarthritis (OA) Additional Family Medical History / Comment(s): stents in her heart Father History Unknown: Yes Medications and Allergies Home Medications Medication Instructions Recorded Confirmed Type ALPRAZolam [Xanax] 0.5 mg PO BID PRN 04/04/22 06/10/25 History Albuterol Inhaler [Ventolin Hfa 1 puff INHALATION RT-TID PRN 04/04/22 06/10/25 History Inhaler] Cyclobenzaprine [Flexeril] 10 mg PO TID PRN 04/04/22 06/10/25 History Montelukast Sodium [Singulair] 10 mg PO HS 04/04/22 06/10/25 History Valsartan 80 mg PO HS 04/04/22 06/10/25 History Atorvastatin Calcium [Lipitor] 40 mg PO HS 05/22/22 06/10/25 History Ergocalciferol [Vitamin D2 (1250 1,250 mcg PO WEEKLY 05/22/22 06/10/25 History Mcg = 01160 Iu)] Hydrocodone/Acetaminophen 1 tab PO Q6HR PRN 05/22/22 06/10/25 History [Hydrocodone/Acetaminophen 5-325] Naproxen Sodium [Aleve] 440 mg PO HS 05/22/22 06/10/25 History Omeprazole [PriLOSEC] 10 mg PO DAILY 05/22/22 06/10/25 History Tirzepatide [Mounjaro] 10 mg SQ TOURE 06/10/25 06/10/25 History Allergies Allergy/AdvReac Type Severity Reaction Status Date / Time ibuprofen [From Motrin] Allergy Intermediate SOB Verified 06/10/25 14:59 rosuvastatin calcium Allergy Rash/Hives Verified 06/10/25 14:59 [From Crestor] hydromorphone [From Dilaudid] AdvReac Intermediate Nausea & Verified 06/10/25 14:59 Vomiting Physical Examination - Wrist & Hand left Symptoms: tingling in thumb, index, long fingers Tests: carpal tunnel tests: positive, median nerve tests: positive Results The patient is a well-developed well-nourished female approximately 5 foot 8, 215 pounds of endomorphic habitus. HEENT exam is nonfocal, neck is supple. She is nontender about the left shoulder and elbow. On examination of her left wri st, she has mild thenar wasting. She has a positive Tinel's over the carpal canal. Abductor pollicis brevis strength 5/5. She has full digital range of motion. EMG report left upper extremity shows left median motor latency of the carpal canal 5.0, sensory latency non-recordable Assessment and Plan Assessment: Left carpal tunnel syndromesymptomatic Plan: I talked to the patient at length regarding her condition along with treatment options. At this point she remains quite symptomatic despite previous conservative measures. After a thorough discussion she opts to proceed with surgery. We will plan to proceed with a left carpal tunnel release utilizing local anesthetic and IV sedation. Risks and benefits were discussed at length in layman's terms.
[~2025-06-15 07:53] MED LIST changes: -DEXAMETHASONE SOD PHOSPHATE 4 MG/ML 1 ML VIAL IV ONE; -HYDROmorphone 0.5 MG/0.5 ML SYRINGE IVP PRN; -LACTATED RINGERS 1,000 ML IV SCH; -MIDAZOLAM 2 MG/2 ML VIAL IV PRN; -ONDANSETRON 4 MG/2 ML VIAL IVP ONE
[2025-06-15] MEDS: IV FLUID CONTINUATION 1,000 ML IV ONE (08:15)
[2025-06-15 08:17] VITALS: TEMP 97
[2025-06-15] MEDS: LACTATED RINGERS 1,000 ML IV SCH (08:24)
[2025-06-15] MEDS ORDERED: PROPOFOL 10 MG/ML 20 ML VIAL IV ONE (09:23)
[2025-06-15] MEDS ORDERED: MIDAZOLAM 2 MG/2 ML VIAL ONE (09:23)
[2025-06-15] MEDS ORDERED: LIDOCAINE 1% INJ 10MG/ML (20 ML MDV) ONE (09:23)
[2025-06-15] MEDS: BUPIVACAINE (PF) 0.25% 30 ML VIAL SQ ONE (09:38)
[2025-06-15] MEDS: LACTATED RINGERS 1,000 ML IV ONE (09:52)
--- NOTE | 2025-06-15 09:59 | P.OP ---
Date of Procedure: 06/15/25 Preoperative Diagnosis: Left carpal tunnel syndrome Postoperative Diagnosis: Same Procedure(s) Performed: Left carpal tunnel release Anesthesia: MAC, local Surgeon: Cem Vicente Estimated Blood Loss (ml): 1 Pathology: none sent Condition: stable Disposition: PACU Indications for Procedure: Patient is a 59-year-old female who presents with progressive left hand pain and numbness despite conservative measures. Clinically she was noted to have symptomatic carpal tunnel syndrome. A discussion of the risks and benefits of operative intervention versus continued conservative measures was made with the patient. She opted to proceed with surgery. Operative risks include infection, neurovascular injury, development of blood clots, possible incomplete resolution of symptoms, and possible need for subsequent procedures was discussed. Informed consent was obtained. Operative Findings: As below Description of Procedure: The patient was brought to the operating room, and after induction of IV sedation the left upper extremity was prepped and draped in normal fashion. The proposed incision site was outlined skin marker in line with the radial aspect the fourth ray extending from the volar wrist crease distally 2-1/2 cm. One quarter percent plain Marcaine was injected into the proposed incision site. 10 mL was utilized. The tourniquet was inflated to 250 mmHg. The skin incision was then made. The skin was incised sharply. Subcutaneous tissues were divided sharply the superficial palmar fascia was identified and split in line with the skin incision. The transverse carpal ligament was identified and transected under direct visualization distally to level the palmar fat pad. Proximal was taken level of the volar wrist crease. A plane above and below the transverse carpal ligament was then bluntly developed with tenotomies. The confluence of the distal forearm fascia and the transverse carpal ligament was then transected under direct visualization proximally with the tines pointed in the ulnar di rection. I felt this was adequate proximal release. Neural lysis was not performed. The wound was irrigated with normal saline. Electrocautery was used for hemostasis. The skin was reapproximated with simple 3-0 nylon sutures. A sterile dressing was applied. The tourniquet was deflated with less than 15 minutes total tourniquet time. Patient was awoken from sedation and transferred to the recovery room in good condition. Blood loss was estimated 1 mL. No complications were incurred. Sponge and needle counts were correct at the end the case.
[2025-06-15 10:31] VITALS: BP 128/68; PULSE 78; RESP 18
== END 2025-06-15 10:34 | disposition home or self-care (01) ==
LOC: OR 07:53
PROVIDERS: ATTEND Orthopaedic Surgery
DX: G56.02 Carpal tunnel syndrome, left upper limb (principal); M19.90 Unspecified osteoarthritis, unspecified site; J44.89 Other specified chronic obstructive pulmonary disease; E11.41 Type 2 diabetes mellitus with diabetic mononeuropathy; K21.9 Gastro-esophageal reflux disease without esophagitis; I82.409 Acute embolism and thrombosis of unspecified deep veins of unspecified lower extremity; E78.5 Hyperlipidemia, unspecified; I10 Essential (primary) hypertension; F17.200 Nicotine dependence, unspecified, uncomplicated; Z83.3 Family history of diabetes mellitus; Z82.61 Family history of arthritis; Z90.710 Acquired absence of both cervix and uterus; Z88.6 Allergy status to analgesic agent; Z88.5 Allergy status to narcotic agent; Z79.02 Long term (current) use of antithrombotics/antiplatelets; Z79.51 Long term (current) use of inhaled steroids; Z79.899 Other long term (current) drug therapy
CPT/HCPCS: 64721; J2250; J0690; J2003; J2704; J0665